=== PATIENT | male | born 1945 | race Two or more races ===

== ENCOUNTER 2021-11-11 21:24 | Emergency (ER) | payer MEDICARE, MEDICAID ==
[~2021-11-11] VITALS: Ht 180.3 cm; Wt 72.0 kg
[2021-11-11 22:26] LABS: Basophils # (auto) 0 10 ^3/uL (0-0.2); Basophils % (auto) 0.1 % (0.0-2.0); Eosinophils # (auto) 0 10 ^3/uL (0-0.8); Lymphocytes # (auto) 0.3 10 ^3/uL (0.4-5.4); Mean Corpuscular Volume 104.5 fL (80.0-100.0); Red Blood Cells 3.42 10^6/uL (4.5-5.90)
[2021-11-11] MEDS ORDERED: VANCOMYCIN 1GM/250ML 250 ML IV ONE (22:45)
[2021-11-11] MEDS ORDERED: PIPERACILLIN-TAZOB 3.375GM 100 ML IV ONE (22:45)
[2021-11-11 22:47] LABS: Hematocrit 35.7 % (41.0-53.0); Hemoglobin 11.3 g/dL (13.5-17.5); Lymphocytes % (auto) 2.5 % (10.0-50.0); Mean Corpuscular Hemoglobin 33.2 pg (28.0-32.0); Mean Corpuscular Hgb Conc. 31.7 g/dL (32.0-36.0); Monocytes # (auto) 0.3 10 ^3/uL (0-1.3); Monocytes % (auto) 1.9 % (0.0-12.0); Neutrophils % (auto) 95.5 % (37.0-80.0); Red Cell Distribution Width 15.9 % (11.8-14.3); White Blood Cell 13.6 10^3/uL (4.4-10.8)
[2021-11-11 22:48] LABS: Albumin 2.6 g/dL (3.4-5.0); Anion Gap 5 (5-15); Blood Alcohol < 3.0 mg/dL (0-5); Blood Urea Nitrogen 44 mg/dL (7-18); Calcium 8.2 mg/dL (8.5-10.1); Carbon Dioxide 32 mmol/L (21-32); Chloride 103 mmol/L (98-107); Glucose 166 mg/dL (74-106); Sodium 140 mmol/L (136-145)
[2021-11-11 22:52] LABS: Alanine Aminotransferase 26 U/L (16-61); Alkaline Phosphatase 139 U/L (45-117); Aspartate Aminotransferase 34 U/L (15-37); BUN/Creatinine Ratio 31.4; GFR African American 64 mL/min; GFR Non-African American 53 mL/min; Total Protein 5.9 g/dL (6.4-8.2)
[2021-11-11 22:53] LABS: Potassium 5.9 mmol/L (3.5-5.1)
[2021-11-11] MEDS ORDERED: SODIUM BICARBONATE 8.4 % INJ 50ML VIAL IV ONE (23:00)
[2021-11-11] MEDS ORDERED: MIDAZOLAM DRIP 50 mg/50mL 50 ML IV ONE (23:28)
[2021-11-11] MEDS ORDERED: ROCURONIUM 10MG/ML 10ML VIAL IV ONE (23:28)
[2021-11-11] MEDS ORDERED: ETOMIDATE (2MG/ML) 20ML VIAL IV ONE (23:29)
[2021-11-11] MEDS ORDERED: MIDAZOLAM HCL 5 MG/ML-1ML VIAL ONE (23:30)
[2021-11-12] MEDS ORDERED: ROCURONIUM 10MG/ML 10ML VIAL IV ONE
[2021-11-12] MEDS ORDERED: ETOMIDATE (2MG/ML) 20ML VIAL IV ONE
[2021-11-12] MEDS ORDERED: MIDAZOLAM HCL 5 MG/ML-1ML VIAL IV ONE
[2021-11-12] MEDS ORDERED: MIDAZOLAM DRIP 50 mg/50mL 50 ML IV SCH (00:45)
[2021-11-12] MEDS ORDERED: NOREPINEPHRINE 8 MG/250ML KIT 250 ML IV ONE (00:59)
[2021-11-12] MEDS ORDERED: NOREPINEPHRINE 8 MG/250ML KIT 250 ML IV SCH (01:00)
[2021-11-12 01:17] VITALS: BP 75/44
== END 2021-11-12 02:03 | disposition short-term general hospital (02) ==
LOC: EDBD 21:24 → ER 21:32
DX: A41.9 Sepsis, unspecified organism (principal); R41.82 Altered mental status, unspecified; J18.9 Pneumonia, unspecified organism; R06.03 Acute respiratory distress; C71.9 Malignant neoplasm of brain, unspecified; Z20.822 Contact with and (suspected) exposure to COVID-19
CPT/HCPCS: 31605; 36415; 36600; 70450; 71045; 71260; 72125; 74177; 80053; 80320; 82140; 82805; 82962; 83605; 83880; 84484; 85025; 87070; 87077; 87186; 87205; 87426; 93005; 94660; 96365; 96368; 96375; 99291; J2250; J2543; J3370; 94002; 99152